=== PATIENT | male | born 1980 | race Caucasian/White ===

== ENCOUNTER 2024-10-31 04:59 | Emergency (ER) | payer MEDICAID ==
[~2024-10-31] VITALS: Ht 180.3 cm; Wt 82.5 kg
[2024-10-31 05:02] VITALS: BP 145/62; PULSE 86; RESP 15; TEMP 97.8; O2SAT 98
== END 2024-10-31 05:43 | disposition home or self-care (01) ==
LOC: ER 05:01
DX: Z02.9 Encounter for administrative examinations, unspecified (principal); F19.10 Other psychoactive substance abuse, uncomplicated
CPT/HCPCS: 99281